=== PATIENT | male | born 1985 | race Caucasian/White ===

== ENCOUNTER 2017-07-31 01:08 | Emergency (ER) | payer BC ==
[~2017-07-31] VITALS: Ht 182.9 cm; Wt 113.5 kg
[~2017-07-31 01:08] MED LIST: IBUP-1116 PO
[2017-07-31 01:15] VITALS: BP 134/76; PULSE 105; RESP 20; TEMP 99.6; O2SAT 97
[2017-07-31 01:28] VITALS: RESP 18; O2SAT 96
[2017-07-31] MEDS ORDERED: ASPI1TAB93 PO (01:30)
[2017-07-31] MEDS ORDERED: SODIUM CHLORIDE 0.9% FLUSH 10 ML FLUSH IVF PRN (01:30)
[2017-07-31] MEDS ORDERED: ASPIRIN 81 MG CHEW TAB PO ONE (01:30)
[2017-07-31] MEDS: NITROGLYCERIN 0.4 MG SL 25 TABS/BTL SL SCH ×4 (01:30→01:44)
[2017-07-31 01:32] VITALS: O2SAT 97
--- NOTE | 2017-07-31 01:37 | PD ---
HPI Chief Complaint: Chest Pain Time Seen by Provider: 01:21 Travel History International Travel<30 days: No Contact w/Intl Traveler<30days: No Traveled to known affect area: No History of Present Illness HPI The patient is a 31-year-old male that has no history of heart disease who complains of a shortness of breath that began at 9 PM tonight. The shortness of breath with sudden onset and he states he was fine before this happened. He denies any fever but has had some chills. He does have nausea without vomiting. He denies any trauma, prolonged immobilization, history of blood clots in the past and he is not on any medications. He does have some very minimal chest tightness of 1/10. The patient has a bifrontal headache of gradual onset but states he often has this headache and normally would take 2 Excedrin for this type of headache. The headache is a 9/10, throbbing pain. PFSH Past Medical History Asthma: No Cancer: No Cardiovascular Problems: No Chemotherapy: No COPD: No Diabetes: No Diminished Hearing: No Endocrine: No GERD: No Genitourinary: No Hepatitis: No Hiatal Hernia: No Immune Disorder: No Kidney Stones: Yes (2010) Musculoskeletal: No Neurologic: No Psychiatric: No Reproductive: No Respiratory: No Migraines: Yes Radiation Therapy: No Renal Failure: No Sickle Cell Disease: No Sleep Apnea: Yes (SUSPECETD) Thyroid Disease: No Ulcer: No Tetanus Vaccination: < 5 Years Influenza Vaccination: Yes Past Surgical History Abdominal Surgery: No AICD: No Arteriovenous Shunt: No Cardiac Surgery: No Ear Surgery: Yes (TUBES IN EARS 1991) Endocrine Surgery: No Eye Surgery: No Genitourinary Surgery: No Gynecologic Surgery: No Insulin Pump: No Joint Replacement: No Oral Surgery: Yes (WISDOM TEETH EXTRACTION) Pacemaker: No Thoracic Surgery: No Tonsillectomy: Yes (T & A ) Other Surgery: Yes (deviated septum) Social History Alcohol Use: No Tobacco Use: No Substance Use: No Allergies-Medications (Allergen,Severity, Reaction): Coded Allergies: cefaclor (Unverified Allergy, Severe, unknown, 07/31/17) UNKNWON acetaminophen (Unverified Allergy, Mild, Nausea/Vomiting, 07/31/17) hydrocodone (Unverified Allergy, Mild, Nausea/Vomiting, 6/14/18) Reported Meds & Prescriptions Reported Meds & Active Scripts Active Ibuprofen 600 Mg Tab 600 Mg PO TID Zofran (Ondansetron HCl) 4 Mg Tab 4 Mg PO Q6HR PRN Reported Excedrin Extra Strength (Paghvvi-Ahisapexkaarj-Bvmjplqf) 250 Mg-250 Mg-65 Mg Tab 1 Tab PO DAILY PRN Review of Systems Except as stated in HPI: all other systems reviewed are Neg Physical Exam Narrative GENERAL: The patient is alert, oriented 3 in moderate apparent distress with his headache. SKIN: Focused skin assessment warm/dry. HEAD: Atraumatic. Normocephalic. EYES: Pupils equal and round. No scleral icterus. No injection or drainage. ENT: No nasal bleeding or discharge. Mucous membranes pink and moist. NECK: Trachea midline. No JVD. CARDIOVASCULAR: Regular rate and rhythm. No murmur appreciated. RESPIRATORY: No accessory muscle use. Clear to auscultation. Breath sounds equal bilaterally. GASTROINTESTINAL: Abdomen soft, non-tender, nondistended. Hepatic and splenic margins not palpable. MUSCULOSKELETAL: No obvious deformities. No clubbing. No cyanosis. No edema. NEUROLOGICAL: Awake and alert. No obvious cranial nerve deficits. Motor grossly within normal limits. Normal speech. PSYCHIATRIC: Appropriate mood and affect; insight and judgment normal. Data Data Last Documented VS Vital Signs Date Time Temp Pulse Resp B/P (MAP) Pulse Ox O2 Delivery O2 Flow Rate FiO2 07/31/17 02:27 20 97 Room Air 07/31/17 01:15 99.6 105 134/76 (95) Orders Orders Electrocardiogram (07/31/17 01:21) Ckmb (Isoenzyme) Profile (07/31/17 01:21) Complete Blood Count With Diff (07/31/17 01:21) Comprehensive Metabolic Panel (07/31/17 01:21) Magnesium (Mg) (07/31/17 01:21) Troponin I (07/31/17 01:21) Ecg Monitoring (07/31/17 01:21) Bilateral Bp Monitoring (07/31/17:21) Iv Access Insert/Monitor (07/31/17 01:21) Oximetry (07/31/17 01:21) Oxygen Administration (07/31/17 01:21) Aspirin Chew (Aspirin Chew) (07/31/17 01:30) Sodium Chloride 0.9% Flush (Ns Flush) (07/31/17 01:30) Nitroglycerin Sl (Nitrostat Sl) (07/31/17 01:30) Chest, Pa & Lat (07/31/17 01:21) B-Type Natriuretic Peptide (07/31/17 01:28) D-Dimer (07/31/17 01:33) CKMB (07/31/17 01:24) CKMB% (07/31/17 01:24) Influenzae A/B Antigen (07/31/17 03:05) Ct Pulmonary Angiogram (07/31/17 03:05) Ketorolac Inj (Toradol Inj) (07/31/17 03:15) Prochlorperazine Inj (Compazine Inj) (07/31/17 03:30) Iohexol 350 Inj (Omnipaque 350 Inj) (07/31/17 03:28) Labs Laboratory Tests Test 07/31/17 01:24 White Blood Count 14.9 TH/MM3 Red Blood Count 5.44 MIL/MM3 Hemoglobin 16.0 GM/DL Hematocrit 45.5 % Mean Corpuscular Volume 83.7 FL Mean Corpuscular Hemoglobin 29.5 PG Mean Corpuscular Hemoglobin Concent 35.2 % Red Cell Distribution Width 13.0 % Platelet Count 177 TH/MM3 Mean Platelet Volume 9.4 FL Neutrophils (%) (Auto) 89.4 % Lymphocytes (%) (Auto) 7.4 % Monocytes (%) (Auto) 0.7 % Eosinophils (%) (Auto) 1.4 % Basophils (%) (Auto) 1.1 % Neutrophils # (Auto) 13.3 TH/MM3 Lymphocytes # (Auto) 1.1 TH/MM3 Monocytes # (Auto) 0.1 TH/MM3 Eosinophils # (Auto) 0.2 TH/MM3 Basophils # (Auto) 0.2 TH/MM3 CBC Comment AUTO DIFF Differential Comment AUTO DIFF CONFIRMED D-Dimer Quantitative (PE/DVT) 0.24 MG/L FEU Blood Urea Nitrogen 16 MG/DL Creatinine 0.95 MG/DL Random Glucose 120 MG/DL Total Protein 6.9 GM/DL Albumin 3.8 GM/DL Calcium Level 8.7 MG/DL Magnesium Level 1.9 MG/DL Alkaline Phosphatase 58 U/L Aspartate Amino Transf (AST/SGOT) 19 U/L Alanine Aminotransferase (ALT/SGPT) 44 U/L Total Bilirubin 0.6 MG/DL Sodium Level 140 MEQ/L Potassium Level 3.9 MEQ/L Chloride Level 106 MEQ/L Carbon Dioxide Level 27.2 MEQ/L Anion Gap 7 MEQ/L Estimat Glomerular Filtration Rate 93 ML/MIN Total Creatine Kinase 137 U/L Creatine Kinase MB 1.9 NG/ML Troponin I LESS THAN 0.02 NG/ML B-Type Natriuretic Peptide 4 PG/ML MDM Medical Decision Making Medical Screen Exam Complete: Yes Emergency Medical Condition: Yes Medical Record Reviewed: Yes Interpretation(s) The EKG shows sinus tachycardia with a rate of [address] but otherwise no acute ST elevation or depression. The d-dimer is normal at 0.24. The BNP is normal at 4. The chest x-ray shows no acute cardiopulmonary disease. The cardiac enzymes are normal. The complete metabolic profile is normal. The CBC shows a white count of 14,900 with 89% neutrophils but is otherwise normal. The influenza A/B antigen is negative for flu a and flu B antigen. The CT pulmonary angiogram shows no evidence of pulmonary embolus. Differential Diagnosis Viral syndrome, dehydration, electrolyte disorder, pulmonary embolus, pneumonia , acute coronary syndrome, hypo-/hyperglycemia, hypocalcemia Narrative Course I just learned at about 0400 at that Mr. Virk vomited and 1 of his children has been vomiting. It is possible that there is a viral syndrome going on at home. It is now 0410 and the patient's headache is much better. The patient likely has a viral syndrome. Diagnosis Primary Impression: Viral syndrome Additional Instructions: Increase liquids, rest and he will get a work excuse to return to work after cleared by her primary care physician. Scripts Ibuprofen (Ibuprofen) 600 Mg Tab 600 MG PO TID, #30 TAB 0 Refills Prov: Vahid London MD 07/31/17 Ondansetron (Zofran) 4 Mg Tab 4 MG PO Q6HR Y for NAUSEA OR VOMITING, #30 TAB 0 Refills Prov: Vahid London MD 07/31/17 Disposition: 01 DISCHARGE HOME Condition: Stable Vahid London MD Jul 31, 2017 01:37
[2017-07-31 01:58] LABS: AUTOMATED NEUTROPHIL # 13.3 TH/MM3 (1.8-7.7); BASOPHIL # 0.2 TH/MM3 (0-0.2); BASOPHIL % 1.1 % (0.0-2.0); EOSINOPHIL # 0.2 TH/MM3 (0-0.4); EOSINOPHIL % 1.4 % (0.0-4.0); HEMATOCRIT 45.5 % (39.0-51.0); LYMPH % 7.4 % (9.0-44.0); LYMPHOCYTE # 1.1 TH/MM3 (1.0-4.8); MEAN CELL VOLUME 83.7 FL (80.0-100.0); MEAN CORPUSCULAR HEMOGLOBIN 29.5 PG (27.0-34.0); MEAN CORPUSCULAR HGB CONC 35.2 % (32.0-36.0); MEAN PLATELET VOLUME 9.4 FL (7.0-11.0); MONO % 0.7 % (0.0-8.0); MONOCYTE # 0.1 TH/MM3 (0-0.9); NEUT % 89.4 % (16.0-70.0); PLATELET COUNT 177 TH/MM3 (150-450); RED BLOOD COUNT 5.44 MIL/MM3 (4.50-5.90); WHITE BLOOD COUNT 14.9 TH/MM3 (4.0-11.0)
[2017-07-31 02:00] LABS: CHLORIDE 106 MEQ/L (98-107); SODIUM (NA) 140 MEQ/L (136-145)
--- NOTE | 2017-07-31 02:02 | RADRPT ---
EXAM DATE: 07/31/2017 1:49 AM EDT AGE/SEX: 31 years / Male INDICATIONS: Shortness of breath for 5 hours CLINICAL DATA: This is the patient's initial encounter. Patient reports that signs and symptoms have been present for 1 day and indicates a pain score of 0/10. MEDICAL/SURGICAL HISTORY: None. None. COMPARISON: No prior exams available for comparison. FINDINGS: PA and lateral views of the chest. The lungs are clear. Cardiomediastinal silhouette withi n normal limits. No evidence of pleural effusion or pneumothorax. CONCLUSION: No acute cardiopulmonary disease identified. Electronically signed by: Jose Ramon Peters MD 07/31/2017 2:01 AM EDT
[2017-07-31 02:03] LABS: CALCIUM 8.7 MG/DL (8.5-10.1)
[2017-07-31 02:04] LABS: ALBUMIN 3.8 GM/DL (3.4-5.0); BICARBONATE 27.2 MEQ/L (21.0-32.0); BLOOD UREA NITROGEN 16 MG/DL (7-18); GLUCOSE,RANDOM 120 MG/DL (74-106); MAGNESIUM 1.9 MG/DL (1.5-2.5)
[2017-07-31 02:07] LABS: ALT (GPT) 44 U/L (12-78); AST (GOT) 19 U/L (15-37); CREATININE 0.95 MG/DL (0.60-1.30); GLOMERULAR FILTRATION RATE 93 ML/MIN (>89)
[2017-07-31 02:09] LABS: TOTAL BILIRUBIN ADULT 0.6 MG/DL (0.2-1.0); TOTAL PROTEIN 6.9 GM/DL (6.4-8.2)
[2017-07-31 02:10] LABS: ALKALINE PHOSPHATASE 58 U/L (45-117)
[2017-07-31 02:12] LABS: TROPONIN I LESS THAN 0.02 NG/ML (0.02-0.05)
[2017-07-31] MEDS ORDERED: KETOROLAC TROMETHAMINE 60 MG/2 ML (IM) VIAL IVP ONE (03:15)
[2017-07-31] MEDS ORDERED: IOHEXOL 350 MG/ML 10 ML VIAL (for RAD DIAG) IVCONTRAST ONE (03:28)
[2017-07-31] MEDS ORDERED: PROCHLORPERAZINE INJ 10 MG/2 ML VIAL IV PUSH ONE (03:30)
--- NOTE | 2017-07-31 03:40 | RADRPT ---
EXAM DATE: 07/31/2017 3:27 AM EDT AGE/SEX: 31 years / Male INDICATIONS: Shortness of breath with chest pain. CLINICAL DATA: This is the patient's initial encounter. Patient reports that signs and symptoms have been present for 1 day and indicates a pain score of 1/10. MEDICAL/SURGICAL HISTORY: None. . RADIATION DOSE: 22.64 CTDI (mGy) COMPARISON: No prior exams available for comparison. TECHNIQUE: Volumetric scanning was performed using a multi-row detector CT scanner during bolus infu aruna of 65 ml Omnipaque 350 (iohexol) nonionic water-soluble contrast as a single exam dose. The yuniel a was post processed with a variety of visualization algorithms including full volume maximum intensi ty projection and sliding thin slab reformation. Using automated exposure control and adjustment of the mA and/or kV according to patient size, radiation dose was kept as low as reasonably achievable t o obtain optimal diagnostic quality images. FINDINGS: Pulmonary Arteries: No filling defects are seen in the pulmonary arteries out to the subsegmental ve ssels. The left and right pulmonary arteries are normal in diameter. Lung: No infiltrates seen. Effusion: None. Mediastinum: No evidence of mediastinal or hilar adenopathy. Other: The axilla is unremarkable. CONCLUSION: No evidence of pulmonary embolus. Electronically signed by: Jose Ramon Peters MD 07/31/2017 3:39 AM EDT
[2017-07-31] MEDS ORDERED: ZOFR4TAB PO (04:06)
[2017-07-31] MEDS ORDERED: IBUP-232 PO (04:06)
[2017-07-31 04:19] VITALS: BP 125/72; PULSE 109; RESP 18; O2SAT 98
--- NOTE | 2017-07-31 18:11 | EKG ---
Date Performed: 07/31/2017 Time Performed: 01:13:27 PTAGE: 31 years EKG: SINUS TACHYCARDIA ABNORMAL RHYTHM ECG NO PREVIOUS TRACING DOCTOR: Carissa Collier Interpretating Date/Time 07/31/2017 18:10:03
== END 2017-07-31 04:27 | disposition home or self-care (01) ==
LOC: PHED 01:08
DX: B34.9 Viral infection, unspecified (principal); R94.31 Abnormal electrocardiogram [ECG] [EKG]; R06.02 Shortness of breath; R07.89 Other chest pain; R51 Headache; R11.0 Nausea; Z87.442 Personal history of urinary calculi
CPT/HCPCS: 71046; 71275; 80053; 82550; 82552; 83735; 83880; 84484; 85025; 85379; 87804; 93005; 96374; 96375; 99285; J0780; J1885; Q9967